=== PATIENT | female | born 1995 | race Caucasian/White ===

== ENCOUNTER 2025-08-03 08:51 | Emergency (ER) | payer SELFPAY ==
[~2025-08-03] VITALS: Ht 154.9 cm; Wt 64.0 kg
[2025-08-03 09:00] VITALS: O2SAT 100
[2025-08-03 09:49] LABS: BASOPHILS % 0.3 % (0.0-2.0); EOSINOPHILS % 0.4 % (0.0-5.0); HEMATOCRIT. 42.9 % (36.0-48.0); HEMOGLOBIN. 14.2 g/dL (12.0-16.0); LYMPHOCYTES % 16.8 % (20.0-50.0); MEAN PLATELET VOLUME 8.7 fl (7.4-10.4); MONOCYTES % 4.2 % (2.0-8.0); NEUTROPHILS % 78.3 % (40.0-76.0); PLATELET 311 x1000/uL (130-400); RED BLOOD CELL COUNT 4.71 mill/uL (4.2-5.4); RED CELL DISTRIBUTION WIDTH 13.5 % (11.6-14.6)
[2025-08-03 09:59] LABS: HCG SCREEN POSITIVE
[2025-08-03 10:04] LABS: CREATININE 0.8 mg/dL (0.6-1.0); UREA NITROGEN BLOOD 8 mg/dL (9-23)
[2025-08-03 14:14] VITALS: BP 102/59; PULSE 69; RESP 17; TEMP 36.7; O2SAT 100
== END 2025-08-03 14:17 | disposition home or self-care (01) ==
LOC: ER 08:51
DX: O20.0 Threatened abortion (principal); R10.30 Lower abdominal pain, unspecified; Z3A.01 Less than 8 weeks gestation of pregnancy
CPT/HCPCS: 36415; 76801; 80048; 81025; 84702; 84703; 85025; 99285; A4606